=== PATIENT | female | born 1990 | race Caucasian/White ===

== ENCOUNTER → 2020-10-19 | Outpatient (CLI) | payer BC ==
--- NOTE | 2020-10-20 09:39 | NUR ---
Left message to call me about COVID test.
== END ==
LOC: LABNPT 08:37
PROVIDERS: ATTEND Otolaryngology Otolaryngology/Facial Plastic Surgery
DX: U07.1 COVID-19 (principal)
CPT/HCPCS: 87635

== ENCOUNTER → 2021-01-11 | Outpatient (CLI) | payer BC ==
--- NOTE | 2021-01-11 08:55 | Diagnostic Imaging Report ---
PROCEDURE: US Thyroid. TECHNIQUE: Multiple real-time grayscale images were obtained of the thyroid in various projections. INDICATION: Goiter. COMPARISON: None. FINDINGS: Both thyroid lobes demonstrate a diffusely heterogeneous background echotexture. There are no focal lesions seen. Color flow Doppler demonstrates normal and symmetric vascularity bilaterally. The right lobe measures 5.6 cm in length , 1.9 cm AP, and 1.9 cm transverse. The left lobe measures 5.9 cm in length , 1.8 cm AP, and 2.3 cm transverse. The isthmus measures 0.5 cm. IMPRESSION: 1. Enlarged heterogeneous thyroid without focal nodularity. Recommend correlation with TSH values and followup as indicated. Dictated by: Dictated on workstation # [id number]
== END ==
LOC: RAD 07:46
PROVIDERS: ATTEND Otolaryngology Otolaryngology/Facial Plastic Surgery
DX: E04.9 Nontoxic goiter, unspecified (principal)
CPT/HCPCS: 76536

== ENCOUNTER → 2022-07-05 | Outpatient (CLI) | payer BC ==
--- NOTE | 2022-07-05 14:24 | Diagnostic Imaging Report ---
PROCEDURE: US Thyroid. TECHNIQUE: Multiple real-time grayscale images were obtained of the thyroid in various projections. INDICATION: Hyperthyroidism COMPARISON: 01/11/2021 FINDINGS: Right thyroid lobe: The right thyroid lobe measures 5.2 x 2.4 x 1.6 cm. It demonstrates diffuse heterogeneous echogenicity without increased vascularity. In the upper pole of the right thyroid lobe, there is a solid, isoechoic nodule that is wider than tall and has no echogenic foci measuring 1.9 x 1.0 x 1.0 cm (TI RADS 3). Due to the heterogeneity throughout the thyroid, this was likely present on prior examination but not as discrete. Isthmus: The thyroid isthmus measures 0.7 cm and is without nodule. Left thyroid lobe: The left thyroid lobe measures 5.5 x 1.8 x 1.8 cm. Again demonstrates marked heterogeneous echogenicity. There is an anechoic cyst that is wider than tall and has no echogenic foci measuring 0.9 x 0.4 x 0.7 cm in the upper pole of the left thyroid (TI RADS 1). IMPRESSION: 1. Enlarged and diffusely heterogeneous thyroid is likely on the basis of thyroiditis. 2. On today's examination, there are a few more conspicuous nodules in prior exam. None of these meet criteria for recommended fine-needle aspiration. Based on size and imaging features, a followup ultrasound in 2 years is recommended to assess stability. ACR TI-RADS: TR3 . TI-RADS Recommendations:TR3 - Mildly Suspicious. FNA if > 2.5 cm. Follow if > 1.5 cm at 1, 3, 5 years. Dictated by: Dictated on workstation # [id number]
== END ==
LOC: RAD 09:47
PROVIDERS: ATTEND Otolaryngology Otolaryngology/Facial Plastic Surgery
DX: E04.2 Nontoxic multinodular goiter (principal); E05.90 Thyrotoxicosis, unspecified without thyrotoxic crisis or storm
CPT/HCPCS: 76536